=== PATIENT | female | born 1990 | race Caucasian/White ===

== ENCOUNTER → 2018-07-04 | Outpatient (CLI) | payer OTHER ==
[~2018-07-04] MED LIST: PROHANCE 279.3MG/ML 15ML VIAL (A9576) As Ordered ONE
== END ==
LOC: M RAD 07:49
PROVIDERS: ATTEND Physician Assistant
DX: M25.551 Pain in right hip (principal); Z53.9 Procedure and treatment not carried out, unspecified reason

== ENCOUNTER → 2018-07-09 | Outpatient (CLI) | payer OTHER ==
--- NOTE | 2018-07-09 19:48 | REP ---
MR LEFT HIP WITH AND WITHOUT CONTRAST: TECHNIQUE: Coronal T1, STIR through the pelvis, T2 fat sat, left hip all three planes, axial oblique proton density fat sat left hip. Axial T1 fat sat, post IV gadolinium axial and coronal T1 fat sat with the intravenous administration of 14 mL ProHance. Visualized osseous structures demonstrate normal marrow signal with no bone marrow edema or occult fracture. There is no evidence of avascular necrosis. I suspect a tear of the anterior labrum. This could be confirmed with MR arthrogram. Other portions of the labrum appear intact. There is no paralabral cyst. There is no joint effusion. Surrounding soft tissue structures are unremarkable. Within the visualized portions of the pelvis, there is a dominant follicle of the right ovary 2.1 cm in diameter without other significant abnormality. No abnormal enhancement is seen in the soft tissues or bone marrow of the left hip. IMPRESSION: No occult fracture. Suspect anterior labral tear. This could be confirmed with an MR arthrogram. Electronically Signed by Vin Moffett MD 07/09/2018 08:24 P
== END ==
LOC: M RAD 17:23
PROVIDERS: ATTEND Physician Assistant
DX: M25.552 Pain in left hip (principal)
CPT/HCPCS: 73723; A9576